=== PATIENT | female | born 1945 | race Caucasian/White ===

== ENCOUNTER 2023-01-03 20:03 | Emergency (ER) | payer MEDICARE, OTHER ==
[~2023-01-03] VITALS: Ht 154 cm; Wt 86.0 kg
[2023-01-03] MEDS ORDERED: ONDANSETRON 4 MG/2 ML (SDV) Z0FRAN IVP ONE (20:15)
[2023-01-03 20:23] LABS: BASOPHILS # (AUTO) 0.1 10^3/uL (0.0-0.1); BASOPHILS % (AUTO) 1 % (0-10); EOSINOPHILS # (AUTO) 0.1 10^3/uL (0.0-0.3); EOSINOPHILS % (AUTO) 2 % (0-10); HEMATOCRIT 42 % (35-52); HEMOGLOBIN 13.5 g/dL (11.5-16.0); LYMPHOCYTES # (AUTO) 1.5 10^3/uL (1.0-4.0); LYMPHOCYTES % (AUTO) 21 % (12-44); MEAN CORPUSCULAR HEMOGLOBIN 29 pg (25-34); MEAN CORPUSCULAR HGB CONC 33 g/dL (32-36); MEAN CORPUSCULAR VOLUME 88 fL (80-99); MEAN PLATELET VOLUME 7.9 fL (9.0-12.2); MONOCYTES # (AUTO) 0.5 10^3/uL (0.0-1.0); MONOCYTES % (AUTO) 7 % (0-12); NEUTROPHILS # (AUTO) 5.2 10^3/uL (1.8-7.8); NEUTROPHILS % (AUTO) 70 % (42-75); PLATELET COUNT 231 10^3/uL (130-400); WHITE BLOOD COUNT 7.4 10^3/uL (4.3-11.0)
--- NOTE | 2023-01-03 20:26 | ED Syncope ---
General Chief Complaint: Dizziness/Syncope Stated Complaint: SYNCOPE Nursing Triage Note: pt brought in by ems after having a syncopal episode while washing her hands after going to the bathroom. family heard thud and immediately ran to her side, pt came to quickly according to family's report to ems. pt denies hitting her head. pt reports nausea. A&Ox4. Source of Information: Patient History of Present Illness Date Seen by Provider: January 03, 2023 Time Seen by Provider: 20:05 Initial Comments PT ARRIVES VIA EMS PT HAD A SYNCOPAL EPISODE, WHILE WASHING HER HANDS AFTER GOING TO THE BATHROOM STATES SHE BECAME VERY DIZZY AND NAUSEATED AND PASSED OUT. WAS NOT WITNESSED, BUT FAMILY HEARD HER AND IMMEDIATELY RAN TO HER SIDE. EPISODE WAS VERY BRIEF, AND PT RECALLS EVENTS JUST PRIOR AND JUST AFTER IT HAPPENED. NO CONFUSION OR POST-ICTAL SYMPTOMS NO REPORTED SEIZURE ACTIVITY PT DENIES ANY HEAD PAIN, AND DOES NOT THINK SHE HIT HER HEAD SHE CONTINUES TO COMPLAIN OF NAUSEA, BUT IS NO LONGER DIZZY SHE DENIES SWEATS DENIES CHEST PAIN OR PALPITATIONS DENIES SHORTNESS OF BREATH. NO PARESTHESIAS OR MOTOR DEFICITS NO CONFUSION NO VISION CHANGES NO LOSS OF BOWEL OR BLADDER CONTROL SHE DENIES PAIN ANYWHERE NO FEVER OR RECENT ILLNESS NO HISTORY OF SIMILAR SHE DOES HAVE HISTORY OF HTN, AND RIGHT BUNDLE BRANCH BLOCK, BUT DENIES ANY OTHER CARDIAC PROBLEMS. SHE DOES NOT HAVE HISTORY OF STROKE OR TIA OR SEIZURES OR ANY NEUROLOGICAL PROBLEMS . SHE IS NOT DIABETIC. PT IS HERE VISITING FROM [place], [place] FOR THE WEEKEND STATES SHE HAS FELT FINE ALL DAY TODAY. SHE ATE DINNER AND WAS FINE. Allergies and Home Medications Allergies Coded Allergies: Sulfa (Sulfonamide Antibiotics) (Verified Allergy, Unknown, 01/03/23) codeine (Verified Allergy, Unknown, 01/03/23) Patient Home Medication List Home Medication List Reviewed: Yes Cefdinir (Cefdinir) 300 Mg Capsule, 300 MG PO BID Prescribed by: SHWETHA SELBY on 01/03/23 8411 Review of Systems Constitutional: see HPI, dizziness EENTM: no symptoms reported Respiratory: no symptoms reported Cardiovascular: see HPI; No chest pain, No edema, No palpitations; syncope Gastrointestinal: see HPI; No abdominal pain, No diarrhea; nausea; No vomiting Genitourinary: no symptoms reported Musculoskeletal: no symptoms reported Skin: no symptoms reported Psychiatric/Neurological: See HPI; Denies Headache, Denies Numbness, Denies Paresthesia, Denies Seizure, Denies Tingling, Denies Tremors, Denies Weakness Past [id number] Hx Patient Social History Tobacco Use?: No Substance use?: No Alcohol Use?: No Pt feels they are or have been: No Immunizations Up To Date Influenza Vaccine Up-to-Date: Yes; Up-to-Date Past Medical History Surgeries: Yes Joint Replacement, Orthopedic, Tubal Ligation Respiratory: No Cardiac: Yes (RBBB) High Cholesterol Neurological: No Reproductive Disorders: Yes (UTERINE PROLAPSE) 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 Genitourinary: No Gastrointestinal: No Musculoskeletal: Yes Arthritis Endocrine: Yes Hypothyroidsim HEENT: No Cancer: No Psychosocial: No Integumentary: No Blood Disorders: No Family Medical History PAST SURGICAL HISTORY: -BILATERAL TUBAL LIGATION -LUMBAR DISC SURGERY -LEFT TOTAL KNEE REPLACEMENT, AND LATER HAD LEFT PATELLA REPLACEMENT -RIGHT TOTAL KNEE REPLACEMENT NO HAVE BOTH HIPS REPLACED IN THE NEAR FUTURE Physical Exam Vital Signs Vital Signs - First Documented 01/03/23 20:05 Temp 36.5 Pulse 89 Resp 14 B/P (MAP) 140/78 (98) Pulse Ox 99 O2 Delivery Room Air Capillary Refill : Less Than 3 Seconds Height, Weight, BMI Height: '" Weight: lbs. oz. kg; 36.00 BMI Method: General Appearance: No Apparent Distress, WD/WN, Obese HEENT: PERRL/EOMI Neck: Full Range of Motion, Normal Inspection, Non Tender, Supple; No Carotid Bruit, No JVD Cardiovascular: Regular Rate, Rhythm, No JVD, No Murmur, Normal Peripheral Pulses Respiratory: Chest Non Tender, Normal Breath Sounds, No Accessory Muscle Use, No Respiratory Distress Gastrointestinal: Normal Bowel Sounds, No Organomegaly, No Pulsatile Mass, Non Tender, Soft Back: No CVA Tenderness, No Vertebral Tenderness Extremities: Normal Capillary Refill, Normal Range of Motion, Non Tender, No Calf Tenderness, Pedal Edema (TRACE EDEMA BILATERALLY) Neurologic/Psychiatric: Alert, Oriented x3, No Motor/Sensory Deficits, Normal Mood/Affect, 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 Norm as Tested; No Abnormal Cerebellar Tests; Other (SPEECH CLEAR AND GAIT STEADY) Cranial Nerves: Normal Hearing, Normal Speech, PERRL Coordination/Gait: Normal Finger to Nose, Normal Gait, Negative Romberg's Sign Motor/Sensory: No Motor Deficit, No Sensory Deficit, No Pronator Drift Skin: Normal Color, Warm/Dry Progress/Results/Core Measures Results/Orders Lab Results Laboratory Tests Test 01/03/23 20:10 01/03/23 20:14 01/03/23 20:55 01/03/23 23:10 Range/Units White Blood Count 7.4 4.3-11.0 10^3/uL Red Blood Count 4.73 3.80-5.11 10^6/uL Hemoglobin 13.5 11.5-16.0 g/dL Hematocrit 42 35-52 % Mean Corpuscular Volume 88 80-99 fL Mean Corpuscular Hemoglobin 29 25-34 pg Mean Corpuscular Hemoglobin Concent 33 32-36 g/dL Red Cell Distribution Width 13.1 10.0-14.5 % Platelet Count 231 130-400 10^3/uL Mean Platelet Volume 7.9 L 9.0-12.2 fL Immature Granulocyte % (Auto) 0 % Neutrophils (%) (Auto) 70 42-75 % Lymphocytes (%) (Auto) 21 12-44 % Monocytes (%) (Auto) 7 0-12 % Eosinophils (%) (Auto) 2 0-10 % Basophils (%) (Auto) 1 0-10 % Neutrophils # (Auto) 5.2 1.8-7.8 10^3/uL Lymphocytes # (Auto) 1.5 1.0-4.0 10^3/uL Monocytes # (Auto) 0.5 0.0-1.0 10^3/uL Eosinophils # (Auto) 0.1 0.0-0.3 10^3/uL Basophils # (Auto) 0.1 0.0-0.1 10^3/uL Immature Granulocyte # (Auto) 0.0 0.0-0.1 10^3/uL Erythrocyte Sedimentation Rate 28 0-30 MM/HR Prothrombin Time 12.8 12.2-14.7 SEC INR Comment 0.9 0.8-1.4 Activated Partial Thromboplast Time 30 24-35 SEC D-Dimer 0.34 0.00-0.49 UG/ML Sodium Level 137 135-145 MMOL/L Potassium Level 3.8 3.6-5.0 MMOL/L Chloride Level 104 98-107 MMOL/L Carbon Dioxide Level 22 21-32 MMOL/L Anion Gap 11 5-14 MMOL/L Blood Urea Nitrogen 12 7-18 MG/DL Creatinine 0.89 0.60-1.30 MG/DL Estimat Glomerular Filtration Rate 67 BUN/Creatinine Ratio 13 Glucose Level 151 H 70-105 MG/DL Calcium Level 9.0 8.5-10.1 MG/DL Corrected Calcium 9.1 8.5-10.1 MG/DL Magnesium Level 2.0 1.6-2.4 MG/DL Total Bilirubin 0.3 0.1-1.0 MG/DL Aspartate Amino Transf (AST/SGOT) 19 5-34 U/L Alanine Aminotransferase (ALT/SGPT) 17 0-55 U/L Alkaline Phosphatase 71 40-136 U/L Total Creatine Kinase 8 L 29-168 U/L Creatine Kinase MB 0.7 <6.6 NG/ML Myoglobin 37.0 10.0-92.0 NG/ML Troponin I < 0.028 < 0.028 <0.028 NG/ML C-Reactive Protein High Sensitivity 1.08 H 0.00-0.50 MG/DL B-Type Natriuretic Peptide 13.4 <100.0 PG/ML Total Protein 6.9 6.4-8.2 GM/DL Albumin 3.9 3.2-4.5 GM/DL Amylase Level 39 25-125 U/L Lipase 27 8-78 U/L TSH [place] Testing 1.00 0.35-4.94 UIU/ML Glucometer 158 H 70-110 MG/DL Urine Color YELLOW Urine Clarity CLEAR Urine pH 7.5 5-9 Urine Specific [place] 1.015 L 1.016-1.022 Urine Protein TRACE H NEGATIVE Urine Glucose (UA) NEGATIVE NEGATIVE Urine Ketones NEGATIVE NEGATIVE Urine Nitrite NEGATIVE NEGATIVE Urine Bilirubin NEGATIVE NEGATIVE Urine Urobilinogen 0.2 < = 1.0 MG/DL Urine Leukocyte Esterase 3+ H NEGATIVE Urine RBC (Auto) 1+ H NEGATIVE Urine RBC 2-5 H /HPF Urine WBC 10-25 H /HPF Urine Squamous Epithelial Cells >50 H /HPF Urine Crystals PRESENT H /LPF Urine Amorphous Sediment FEW KAREN PHOSPHATE H /LPF Urine Bacteria LARGE H /HPF Urine Casts NONE /LPF Urine Mucus SMALL H /LPF Urine Yeast RARE /HPF Urine Culture Indicated YES My Orders Orders - SHWETHA SELBY DO Ekg Tracing (01/03/23 20:08) Monitor-Rhythm Ecg Trace Only (01/03/23 20:08) Accucheck Stat ONCE (01/03/23 20:08) Ed Iv/Invasive Line Start (01/03/23 20:08) O2 (01/03/23 20:08) Ct Head Wo-R/O Stroke (01/03/23 20:08) Chest 1 View, Ap/Pa Only (01/03/23 20:08) Amylase (01/03/23 20:08) Bnp [place] (01/03/23 20:08) Cbc With Automated Diff (01/03/23 20:08) Comprehensive Metabolic Panel (01/03/23 20:08) Creatine Kinase (01/03/23 20:08) Creatine Kinase Mb (01/03/23 20:08) Hs C Reactive Protein (01/03/23 20:08) Fibrin Degradation Products (01/03/23 20:08) Lipase (01/03/23 20:08) Magnesium (01/03/23 20:08) Protime With Inr (01/03/23 20:08) Partial Thromboplastin Time (01/03/23 20:08) Thyroid Analyzer (01/03/23 20:08) Ua Culture If Indicated (01/03/23 20:08) Erythrocyte Sedimentation Rate (01/03/23 20:08) Myoglobin Serum (01/03/23 20:08) Troponin I [place] (01/03/23 20:08) Ondansetron Injection (Zofran Injectio (01/03/23 20:15) Urine Culture (01/03/23 20:55) Ceftriaxone Iv/Im (Rocephin Iv/Im) (01/03/23 21:30) Ekg Tracing (01/03/23 22:57) Troponin I Emil (01/03/23 22:57) Medications Given in ED Current Medications Medications Dose Ordered Sig/Florentin Route Start Time Stop Time Status Last Admin Dose Admin Ceftriaxone Sodium 1000 mg/ Sodium Chloride 50 ml @ 100 mls/hr ONCE ONCE IV 01/03/23 21:30 01/03/23 21:59 DC 01/03/23 21:40 100 MLS/HR Ondansetron HCl 4 mg ONCE ONCE IVP 01/03/23 20:15 01/03/23 20:16 DC 01/03/23 20:25 4 MG Vital Signs/I&O 01/03/23 20:05 Temp 36.5 Pulse 89 Resp 14 B/P (MAP) 140/78 (98) Pulse Ox 99 O2 Delivery Room Air Blood Pressure Mean: 98 Progress Progress Note : Progress Note SHORTLY AFTER ARRIVAL, PT STATES HER DIZZINESS IS GONE. A SHORT TIME AFTER THAT, SHE STATES HER NAUSEA IS GONE NO SYMPTOMS OF ANY KIND FOR REMAINDER OF ER STAY VITALS STABLE, NO ARRHYTHMIAS REPEAT EKG IS UNCHANGED, AND REPEAT TROPONIN IS STILL NEGATIVE. LABS ARE ALL ESSENTIALLY NORMAL WITH THE EXCEPTION OF UTI. PT NOW STATES THAT SHE HAS HAD URINARY URGENCY AND FREQUENCY THIS WEEK, BUT NO PAIN OR DISCOMFORT WITH URINATION REVIEWED TEST RESULTS, ANTICIPATED COURSE, SYMPTOMATIC TREATMENT, MEDICATIONS, NEED FOR FOLLOW UP AND STRICT RETURN PRECAUTIONS. OFFERED ADMIT OVERNIGHT FOR OBSERVATION AND CARDIOLOGY EVALUATION, AND PT DECLINES. AT DISMISSAL, PT NOW STATES THAT HER MOTHER DID THE SAME THING WHENEVER SHE HAD A UTI ( GOT DIZZY AND PASSED OUT ) SHE ALSO STATES AT DISMISSAL THAT HER SISTER HAS ATRIAL FIBRILLATION. DISCUSSED IMPORTANCE OF FOLLOW UP WITH HER PCP, AND MAY NEED CARDIOLOGY EVALUATION AND/OR CARDIAC MONITORING DEVICE . Initial ECG Impression Date: January 03, 2023 Initial ECG Impression Time: 20:16 Initial ECG Rate: 89 Initial ECG Rhythm: Normal Sinus (RBBB) Initial ECG Intervals ID 219 QRS 141 QT/QTC 409/456 Initial ECG Impression: 1st Degree AV Block Initial ECG Comparisson: No Previous ECG Available Comment PT STATES SHE HAS A KNOWN RIGHT BUNDLE BRANCH BLOCK. INTERPRETED BY ME EKG : EKG Time: 23:18 Rate: 92 Rhythm: Normal Sinus (RBBB) Intervals ID 193 QRS 128 QT/QTC 379/428 ECG Comparisson: Unchanged Comment INTERPRETED BY ME Diagnostic Imaging Comments CXR--PER RADIOLOGIST REPORT AT 2103 FINDINGS: The lung volumes are normal. No focal consolidation is seen. No large pleural effusion or pneumothorax is seen. The cardiomediastinal silhouette is normal in size and contour. There is calcified aortic atherosclerotic plaque. No acute osseous abnormality is seen. IMPRESSION: No acute pleuroparenchymal process. CT HEAD--PER RADIOLOGIST REPORT AT 2103 FINDINGS: No large acute territorial ischemia, mass, or hemorrhage. No midline shift or mass effect. The ventricles, cortical sulci, and basilar cisterns are patent and unremarkable. The orbits are normal. Paranasal sinuses are normal. Mastoid air cells are clear. No soft tissue abnormality is seen. No osseus lesions or fractures are seen. IMPRESSION: 1. No large acute territorial ischemia, mass, or hemorrhage. If symptoms persist, consider MRI brain to further evaluate. Reviewed: Reviewed by Me Departure Impression Primary Impression: Syncope Additional Impression: UTI (urinary tract infection) Disposition: HOME, SELF-CARE Condition: Improved Departure-Patient Inst. Decision time for Depature: 23:52 Referrals: NO,LOCAL PHYSICIAN (PCP/Family) Primary Care Physician Patient Instructions: Urinary Tract Infection, Adult ED, Syncope (Fainting) (DC) Add. Discharge Instructions: INCREASE YOUR FLUID INTAKE--WATER, GATORADE OR OTHER CLEAR LIQUIDS WITH ELECTROLYTES AVOID COFFEE, POP AND TEA CONTINUE YOUR REGULAR MEDICATIONS PRESCRIBED FOLLOW UP WITH YOUR DR NEXT WEEK FOR FURTHER CARE, RETURN TO ER IF SYMPTOMS RECUR All discharge instructions reviewed with patient and/or family. Voiced understanding. Scripts Cefdinir (Cefdinir) 300 Mg Capsule 300 MG PO BID, #20 CAP Prov: SHWETHA SELBY DO 01/03/23 SHWETHA SELBY DO January 03, 2023 20:26
[2023-01-03 20:34] LABS: INR 0.9 (0.8-1.4); PROTHROMBIN TIME PATIENT 12.8 SEC (12.2-14.7)
[2023-01-03 20:38] LABS: FIBRIN DEGRADATION PRODUCTS 0.34 UG/ML (0.00-0.49)
[2023-01-03 20:43] LABS: ALANINE AMINOTRANSFERASE 17 U/L (0-55); ALBUMIN 3.9 GM/DL (3.2-4.5); ALKALINE PHOSPHATASE 71 U/L (40-136); AMYLASE 39 U/L (25-125); BILIRUBIN,TOTAL 0.3 MG/DL (0.1-1.0); BUN/CREATININE RATIO 13; CARBON DIOXIDE 22 MMOL/L (21-32); CHLORIDE 104 MMOL/L (98-107); CREATINE KINASE 8 U/L (29-168); CREATININE SERUM 0.89 MG/DL (0.60-1.30); GFR ESTIMATED 67; GLUCOSE 151 MG/DL (70-105); LIPASE 27 U/L (8-78); POTASSIUM 3.8 MMOL/L (3.6-5.0); SODIUM 137 MMOL/L (135-145); TOTAL PROTEIN 6.9 GM/DL (6.4-8.2)
[2023-01-03 20:44] LABS: ERYTHROCYTE SEDIMENTATION RATE 28 MM/HR (0-30)
--- NOTE | 2023-01-03 21:01 | Diagnostic Imaging Report ---
EXAMINATION: CT head without contrast. TECHNIQUE: Multiple contiguous axial images were obtained through the brain without the use of intravenous contrast. All CT scans use one or more of the following dose optimizing techniques: automated exposure control, MA and/or KvP adjustment based on patient size and exam type or iterative reconstruction. HISTORY: Syncopal episode. Concern for stroke. COMPARISON: None available. FINDINGS: No large acute territorial ischemia, mass, or hemorrhage. No midline shift or mass effect. The ventricles, cortical sulci, and basilar cisterns are patent and unremarkable. The orbits are normal. Paranasal sinuses are normal. Mastoid air cells are clear. No soft tissue abnormality is seen. No osseus lesions or fractures are seen. IMPRESSION: 1. No large acute territorial ischemia, mass, or hemorrhage. If symptoms persist, consider MRI brain to further evaluate. Dictated by: Dictated on workstation # [id number]
--- NOTE | 2023-01-03 21:01 | Diagnostic Imaging Report ---
EXAMINATION: Chest 1 view. HISTORY: Syncopal episode. COMPARISON: None available. FINDINGS: The lung volumes are normal. No focal consolidation is seen. No large pleural effusion or pneumothorax is seen. The cardiomediastinal silhouette is normal in size and contour. There is calcified aortic atherosclerotic plaque. No acute osseous abnormality is seen. IMPRESSION: No acute pleuroparenchymal process. Dictated by: Dictated on workstation # [id number]
[2023-01-03 21:02] LABS: BILIRUBIN,URINE NEGATIVE (NEGATIVE); CLARITY,URINE CLEAR; COLOR,URINE YELLOW; GLUCOSE, URINE (UA) NEGATIVE (NEGATIVE); KETONES,URINE NEGATIVE (NEGATIVE); LEUKOCYTE ESTERASE ,URINE 3+ (NEGATIVE); NITRITE,URINE NEGATIVE (NEGATIVE); PH,URINE 7.5 (5-9); PROTEIN,URINE TRACE (NEGATIVE)
[2023-01-03 21:03] LABS: CREATINE KINASE MB 0.7 NG/ML (<6.6)
[2023-01-03 21:12] LABS: BACTERIA,URINE LARGE /HPF
[2023-01-03 21:13] LABS: AMORPHOUS SEDIMENT,UR FEW AMOR PHOSPHATE /LPF; SQUAMOUS EPITHELIAL CELL,UR >50 /HPF; YEAST,URINE RARE /HPF
[2023-01-03] MEDS ORDERED: cefTRIAXone IV/IM 1,000 MG in NS (IVPB) 50 ML IV ONE (21:30)
[2023-01-03] MEDS ORDERED: CEFD300C3 PO (23:54)
[2023-01-04 00:15] VITALS: BP 145/83
== END 2023-01-04 00:15 | disposition home or self-care (01) ==
LOC: ER 20:04
DX: R55 Syncope and collapse (principal); N39.0 Urinary tract infection, site not specified; E66.9 Obesity, unspecified; Z68.36 Body mass index [BMI] 36.0-36.9, adult; Z88.2 Allergy status to sulfonamides
CPT/HCPCS: 36415; 70450; 71045; 80053; 81000; 82150; 82550; 82553; 82947; 83690; 83735; 83874; 83880; 84443; 84484; 85025; 85379; 85610; 85652; 85730; 86141; 87088; 93005; 93041